=== PATIENT | female | born 1975 | race Caucasian/White ===

== ENCOUNTER 2018-05-13 17:51 | Emergency (ER) | payer BC, MEDICAID ==
--- NOTE | 2018-05-13 19:27 | ER Document Report ---
ED Medical Screen (RME) - General Chief Complaint: Flank Pain Stated Complaint: URINARY PROBLEM Time Seen by Provider: 05/13/18 19:13 Mode of Arrival: Ambulatory Information source: Patient Notes: 42 yr old female presents with complaints of flank pain possible infection. pt recentlytreated with cipro for pyelo, noted ot have no growth on her culture with a creatinine of 3.16 I have greeted and performed a rapid initial assessment of this patient. A comprehensive ED assessment and evaluation of the patient, analysis of test results and completion of the medical decision making process will be conducted by additional ED providers. PHYSICAL EXAMINATION: GENERAL: Well-appearing, well-nourished and in no acute distress. HEAD: Atraumatic, normocephalic. EYES: Pupils equal round extraocular movements intact, conjunctiva are normal. ENT: Nares patent NECK: Normal range of motion LUNGS: No respiratory distress Musculoskeletal: Normal range of motion NEUROLOGICAL: Normal speech, normal gait. PSYCH: Normal mood, normal affect. SKIN: Warm, Dry, normal turgor, no rashes or lesions noted. TRAVEL OUTSIDE OF THE [place] IN LAST 30 DAYS: No - Related Data Allergies/Adverse Reactions: No Known Allergies Allergy (Unverified 05/13/18 17:54) Past Medical History - Social History Chew tobacco use (# tins/day): No Frequency of alcohol use: None Drug Abuse: None Renal/ Medical History: Denies: Hx Peritoneal Dialysis Physical Exam - Vital signs Vitals: Temp Pulse Resp BP Pulse Ox 99.5 F 81 18 149/85 H 100 05/13/18 18:22 05/13/18 18:22 05/13/18 18:22 05/13/18 18:22 05/13/18 18:22 Course - Vital Signs Vital signs: Temp Pulse Resp BP Pulse Ox 99.5 F 81 18 149/85 H 100 05/13/18 18:22 05/13/18 18:22 05/13/18 18:22 05/13/18 18:22 05/13/18 18:22 Doctor's Discharge - Discharge Referrals: MAYRA PIKE MD [Primary Care Provider] - Follow up as needed
[2018-05-13 20:14] LABS: ABSOLUTE BASOPHILS # (AUTO) 0.1 10^3/uL (0.0-0.2); ABSOLUTE EOSINOPHILS # (AUTO) 0.3 10^3/uL (0.0-0.6); ABSOLUTE LYMPHOCYTES (AUTO) 2.9 10^3/uL (0.5-4.7); ABSOLUTE NEUT (AUTO) 12.9 10^3/uL (1.7-8.2); BASOPHILS % (AUTO) 0.4 % (0-2); EOSINOPHILS % (AUTO) 1.7 % (0-6); HEMATOCRIT 34.6 % (36.0-47.0); HEMOGLOBIN 11.4 g/dL (12.0-15.5); LYMPHOCYTES % (AUTO) 16.8 % (13-45); MEAN CORPUSCULAR HEMOGLOBIN 27.6 pg (27.0-33.4); MEAN CORPUSCULAR HGB CONC 33.1 g/dL (32.0-36.0); MEAN CORPUSCULAR VOLUME 83 fl (80-97); MONOCYTES % (AUTO) 6.1 % (3-13); PLATELET COUNT 343 10^3/uL (150-450); RED BLOOD COUNT 4.15 10^6/uL (3.72-5.28); RED CELL DISTRIBUTION WIDTH 14.7 % (11.5-14.0); TOTAL CELLS COUNTED % (AUTO) 100 %; WHITE BLOOD COUNT 17.2 10^3/uL (4.0-10.5)
[2018-05-13 20:17] LABS: APPEARANCE,URINE SLIGHTLY-CLOUDY; BILIRUBIN,URINE NEGATIVE (NEGATIVE); COLOR,URINE STRAW; GLUCOSE, URINE NEGATIVE (NEGATIVE); KETONES,URINE NEGATIVE (NEGATIVE); LEUKOCYTE ESTERASE,URINE MODERATE (NEGATIVE); NITRITE,URINE NEGATIVE (NEGATIVE); PROTEIN,URINE NEGATIVE (NEGATIVE); URINE SPECIFIC GRAVITY 1.009; UROBILINOGEN,URINE NEGATIVE mg/dL (<2.0)
[2018-05-13 20:29] LABS: ALANINE AMINOTRANSFERASE 18 U/L (9-52); ALBUMIN 4.6 g/dL (3.5-5.0); ALKALINE PHOSPHATASE 107 U/L (38-126); ANION GAP 15 (5-19); ASPARTATE AMINO TRANSFERASE 30 U/L (14-36); BILIRUBIN,DIRECT 0.5 mg/dL (0.0-0.4); BILIRUBIN,TOTAL 0.5 mg/dL (0.2-1.3); BLOOD UREA NITROGEN 47 mg/dL (7-20); CALCIUM 8.5 mg/dL (8.4-10.2); CARBON DIOXIDE 19 mmol/L (22-30); CHLORIDE 109 mmol/L (98-107); GLUCOSE 90 mg/dL (75-110); POTASSIUM 5.6 mmol/L (3.6-5.0); SODIUM 142.9 mmol/L (137-145); TOTAL PROTEIN 9.4 g/dL (6.3-8.2)
--- NOTE | 2018-05-13 20:35 | RADIOLOGY REPORT (SQ) ---
EXAM DESCRIPTION: U/S RETROPERITON (RENAL/AORTA) COMPLETED DATE/TIME: 05/13/2018 8:22 pm REASON FOR STUDY: renal u/s acute renal failure COMPARISON: None. TECHNIQUE: Dynamic and static grayscale images acquired of the kidneys and bladder and recorded on P ACS. Additional selected color Doppler and spectral images recorded. LIMITATIONS: None. FINDINGS: RIGHT KIDNEY: Enlarged kidney, 16.6 cm. Mild hydronephrosis. Prominent renal pyramids. LEFT KIDNEY: Normal size, 14.1 cm. Mild hydronephrosis. Prominent renal pyramids. BLADDER: Bladder is poorly distended. There is a cystic area adjacent to the bladder possible bladde r diverticulum. OTHER FINDINGS: No other significant finding. IMPRESSION: 1. Possible pyelonephritis. 2. Possible bladder diverticulum. Possible ovarian cyst. TECHNICAL DOCUMENTATION: JOB ID: [id number] [employer]- All Rights Reserved Reading location - IP/workstation name: [email or web address]
[2018-05-13] MEDS ORDERED: NORMAL SALINE 1000 ML 1,000 ML IV ONE (21:03)
[2018-05-13] MEDS ORDERED: MORPHINE SULFATE 10 MG/ML INJ IV PRN (21:03)
[2018-05-13] MEDS ORDERED: CEFTRIAXONE INJ 1000 MG VIAL IV ONE (21:04)
--- NOTE | 2018-05-13 22:10 | ER Document Report ---
ED General - General Chief Complaint: Flank Pain Stated Complaint: URINARY PROBLEM Time Seen by Provider: 05/13/18 19:13 Mode of Arrival: Ambulatory Notes: Patient is a 42-year-old female with a past medical history of bipolar disorder currently treated with Seroquel, no other chronic medical problems who presents with 1-2 weeks of feeling progressively more weak, describes just feeling generally unwell. She was seen at an urgent care on 06 May, diagnosed with a possible kidney infection although her creatinine was noted to be markedly elevated at that time at 3.1. She states that she took all of the antibiotics as prescribed and that her urine culture came back negative. She states that however her general fatigue and feeling overall unwell has persistently worsened since that time. Nothing improves or worsens her symptoms. She denies any history of similar symptoms prior to the past several weeks. She does note some mild associated shortness of breath. She also notes some bilateral mild, constant, aching pain to her flanks somewhat worse on the left. She has had nausea but no vomiting. No fever. No history of autoimmune diseases, denies any heavy NSAID use, no history of kidney dysfunction in the past. TRAVEL OUTSIDE OF THE [place] IN LAST 30 DAYS: No - Related Data Allergies/Adverse Reactions: No Known Allergies Allergy (Unverified 05/13/18 17:54) Past Medical History - General Information source: Patient - Social History Smoking Status: Never Smoker Chew tobacco use (# tins/day): No Frequency of alcohol use: None Drug Abuse: None Lives with: Family Family History: Reviewed & Not Pertinent Patient has suicidal ideation: No Patient has homicidal ideation: No Renal/ Medical History: Denies: Hx Peritoneal Dialysis Review of Systems - Review of Systems Notes: Constitutional: Negative for fever. Positive for general fatigue HENT: Negative for sore throat. Eyes: Negative for visual changes. Cardiovascular: Negative for chest pain. Respiratory: Negative for shortness of breath. Gastrointestinal: Positive for nausea and bilateral flank pain Genitourinary: Negative for dysuria. Musculoskeletal: Negative for back pain. Skin: Negative for rash. Neurological: Negative for headaches, weakness or numbness. 10 point ROS negative except as marked above and in HPI. Physical Exam - Vital signs Vitals: Temp Pulse Resp BP Pulse Ox 99.5 F 81 18 149/85 H 100 05/13/18 18:22 05/13/18 18:22 07/03/18 18:22 05/13/18 18:22 05/13/18 18:22 Interpretation: Hypertensive Notes: PHYSICAL EXAMINATION: GENERAL: Well-appearing, well-nourished and in no acute distress. HEAD: Atraumatic, normocephalic. EYES: Pupils equal round and reactive to light, extraocular movements intact, sclera anicteric, conjunctiva are normal. ENT: nares patent, oropharynx clear without exudates. Moist mucous membranes. NECK: Normal range of motion, supple without lymphadenopathy LUNGS: Breath sounds clear to auscultation bilaterally and equal. No wheezes rales or rhonchi. HEART: Regular rate and rhythm without murmurs ABDOMEN: Soft, mild bilateral flank tenderness more prominent on the left, abdomen nontender, normoactive bowel sounds. No guarding, no rebound. No masses appreciated. EXTREMITIES: Normal range of motion, no pitting or edema. No cyanosis. NEUROLOGICAL: No focal neurological deficits. Moves all extremities spontaneously and on command. PSYCH: Normal mood, normal affect. SKIN: Warm, Dry, normal turgor, no rashes or lesions noted. Course - Re-evaluation Re-evalutation: 05/13/18 22:09 Patient presents with 1 week of progressively worsening generalized fatigue, left-sided flank pain, found to have rapidly deteriorating renal function. The patient is in acute renal failure at this point with her GFR being only 6, creatinine 6.19 which is up trended from 3.1 on 05/06. She is also developing some mild hyperkalemia as well as low bicarbonate. Her urinalysis is not consistent with pyelonephritis although the renal ultrasound does show some findings consistent with this diagnosis. Moreover her urine culture from her visit to the urgent care on 05/06 did not grow any bacteria and she did complete a course of ciprofloxacin. She also does not have fever or constitutional symptoms to suggest this diagnosis. I believe the patient needs an urgent nephrology assessment to evaluate the etiology of her rapid deterioration in renal function. I have contacted [facility] and requested transfer and I am awaiting callback. 05/14/18 00:24 I have spoken with Dr. Nobles of [facility] who is excepted the patient. The patient remains hemodynamically within normal limits, on maintenance fluids, stable for transport 05/14/18 0200 Patient remains appropriate and stable for transport. - Vital Signs Vital signs: Temp Pulse Resp BP Pulse Ox 98.1 F 95 16 139/69 H 98 05/14/18 01:55 05/14/18 01:55 05/14/18 01:55 05/14/18 01:55 05/14/18 01:55 - Laboratory Result Diagrams: 05/13/18 19:40 05/13/18 18:40 Laboratory results interpreted by me: 05/13/18 05/13/18 05/13/18 18:40 19:30 19:40 WBC 17.2 H Hgb 11.4 L Hct 34.6 L RDW 14.7 H Absolute Neutrophils 12.9 H Potassium 5.6 H Chloride 109 H Carbon Dioxide 19 L BUN 47 H Creatinine 6.17 H Est GFR ( Amer) 9 L Est GFR (Non-Af Amer) 7 L Direct Bilirubin 0.5 H Total Protein 9.4 H Ur Leukocyte Esterase MODERATE H - Diagnostic Test Radiology reviewed: Reports reviewed - EKG Interpretation by Me Additional EKG results interpreted by me: 05/14/18 05:11 Sinus tachycardia. Rate 102. No ST elevations or depressions. QTC is 464. Discharge - Discharge Clinical Impression: Hyperkalemia, Body aches, Flank pain Acute renal failure Qualifiers: Acute renal failure type: unspecified Qualified Code(s): N17.9 - Acute kidney failure, unspecified Condition: Fair Disposition: [facility] Referrals: MAYRA PIKE MD [[facility]] - Follow up as needed
[2018-05-13] MEDS ORDERED: METOCLOPRAMIDE HCL INJ/PF 10 MG/2 ML SDV IV ONE (22:19)
[2018-05-13] MEDS ORDERED: METOCLOPRAMIDE HCL INJ/PF 10 MG/2 ML SDV ONE (22:21)
[2018-05-14] MEDS ORDERED: METOCLOPRAMIDE HCL INJ/PF 10 MG/2 ML SDV IV ONE (00:21)
[2018-05-14 02:01] VITALS: BP 139/69
--- NOTE | 2018-05-14 09:18 | EKG REPORT ---
SEVERITY:- OTHERWISE NORMAL ECG - SINUS TACHYCARDIA : Confirmed by: Duke Molina MD 14-May-2018 09:17:45
== END 2018-05-14 02:05 | disposition short-term general hospital (02) ==
LOC: ER 17:51
DX: E87.5 Hyperkalemia (principal); N17.9 Acute kidney failure, unspecified; R10.9 Unspecified abdominal pain; R53.1 Weakness; M79.1 Myalgia
CPT/HCPCS: 93005; 99285; 96375; 96365; 36415; 87040; 87086; 85025; 80053; 81001; 76770; 93010; J2765 ×2; J2270; J0696; J7030

== ENCOUNTER 2020-06-06 08:17 | Emergency (ER) | payer OTHER, BC ==
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
[2020-06-06 09:32] LABS: ABSOLUTE EOSINOPHILS # (AUTO) 0.2 10^3/uL (0.0-0.6); ABSOLUTE LYMPHOCYTES (AUTO) 1.7 10^3/uL (0.5-4.7); ABSOLUTE MONOCYTES (AUTO) 0.8 10^3/uL (0.1-1.4); ABSOLUTE NEUT (AUTO) 8.6 10^3/uL (1.7-8.2); BASOPHILS % (AUTO) 0.4 % (0-2); EOSINOPHILS % (AUTO) 1.9 % (0-6); HEMATOCRIT 42.4 % (36.0-47.0); HEMOGLOBIN 14.1 g/dL (12.0-15.5); LYMPHOCYTES % (AUTO) 14.8 % (13-45); MEAN CORPUSCULAR HEMOGLOBIN 31.1 pg (27.0-33.4); MEAN CORPUSCULAR HGB CONC 33.3 g/dL (32.0-36.0); MEAN CORPUSCULAR VOLUME 93 fl (80-97); MONOCYTES % (AUTO) 6.9 % (3-13); PLATELET COUNT 219 10^3/uL (150-450); RED BLOOD COUNT 4.55 10^6/uL (3.72-5.28); RED CELL DISTRIBUTION WIDTH 13.6 % (11.5-14.0); TOTAL CELLS COUNTED % (AUTO) 100 %; WHITE BLOOD COUNT 11.4 10^3/uL (4.0-10.5)
[2020-06-06 09:50] LABS: ALBUMIN 3.8 g/dL (3.5-5.0); ALKALINE PHOSPHATASE 125 U/L (38-126); ANION GAP 6 (5-19); ASPARTATE AMINO TRANSFERASE 48 U/L (14-36); BILIRUBIN,TOTAL 0.3 mg/dL (0.2-1.3); BLOOD UREA NITROGEN 15 mg/dL (7-20); CALCIUM 9.1 mg/dL (8.4-10.2); CARBON DIOXIDE 25 mmol/L (22-30); CHLORIDE 106 mmol/L (98-107); GLUCOSE 123 mg/dL (75-110); POTASSIUM 4.6 mmol/L (3.6-5.0); TOTAL PROTEIN 7.7 g/dL (6.3-8.2)
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
[2020-06-06 11:50] VITALS: BP 132/85
== END 2020-06-06 11:49 | disposition home or self-care (01) ==
LOC: ER 08:17
DX: M79.601 Pain in right arm (principal); R10.12 Left upper quadrant pain; R07.89 Other chest pain; M25.511 Pain in right shoulder; V87.7XXA Person injured in collision between other specified motor vehicles (traffic), initial encounter
CPT/HCPCS: 36415; 71260; 74177; 80053; 85025; 99284